=== PATIENT | female | born 1965 | race Caucasian/White ===

== ENCOUNTER 2020-09-28 09:01 | Emergency (ER) | payer OTHER ==
[~2020-09-28] VITALS: Ht 165.1 cm; Wt 81.7 kg
[~2020-09-28 09:01] MED LIST: AVELOX 400 MG400 MG PO; CYMBALTA30 MG PO; ESTRACE2 MG PO; LISINOPRIL-HCT1 EAC1 PO; ULTRAM ER100 MG PO
[2020-09-28] MEDS ORDERED: NEURONTIN 400M400 M2 PO (09:21)
[2020-09-28] MEDS ORDERED: GABAPENTIN800 M1 PO (09:21)
[2020-09-28] MEDS ORDERED: NORCO 7.5-3251 EACH PO (09:21)
[2020-09-28] MEDS ORDERED: ONZETRA XSAIL11 MG PO (09:22)
[2020-09-28] MEDS ORDERED: XYREM500 MG/1 M PO (09:22)
[2020-09-28] MEDS ORDERED: BENTYL 10 MG CA10 MG PO (09:22)
[2020-09-28] MEDS ORDERED: FEXOFENADINE-P1 EACH PO (09:23)
[2020-09-28] MEDS ORDERED: ACIDOPHILUS1 EAC3 PO (09:23)
[2020-09-28] MEDS ORDERED: SUPER THERAVIT1 EACH PO (09:23)
[2020-09-28] MEDS ORDERED: MAGNESIUM CITR100 MG PO (09:23)
[2020-09-28 10:04] LABS: URINE BILIRUBIN NEGATIVE (Negative); URINE BLOOD NEGATIVE (Negative); URINE CLARITY CLEAR; URINE COLOR YELLOW; URINE GLUCOSE-RANDOM NEGATIVE (Negative); URINE KETONES NEGATIVE (Negative); URINE LEUKOCYTES-REFLEX NEGATIVE (Negative); URINE NITRITE-REFLEX NEGATIVE (Negative); URINE PROTEIN NEGATIVE (Negative); URINE UROBILINOGEN 0.2 E.U./dl (0.2-1.0)
[2020-09-28] MEDS ORDERED: LIDODERM1 EACH TOP (10:13)
[2020-09-28 10:22] VITALS: BP 124/68
== END 2020-09-28 10:23 | disposition home or self-care (01) ==
LOC: M.ERS 09:01
PROVIDERS: Emergency Medicine Emergency Medical Services
DX: M54.5 Low back pain (principal); M79.7 Fibromyalgia; Z88.8 Allergy status to other drugs, medicaments and biological substances; Z88.1 Allergy status to other antibiotic agents; Z88.0 Allergy status to penicillin; Z79.899 Other long term (current) drug therapy; Z90.710 Acquired absence of both cervix and uterus; Z90.89 Acquired absence of other organs

== ENCOUNTER 2021-01-11 11:53 | Emergency (ER) | payer OTHER ==
[~2021-01-11] VITALS: Ht 157.5 cm; Wt 66.7 kg
[~2021-01-11 11:53] MED LIST changes: +ACIDOPHILUS1 EAC3 PO; +BENTYL 10 MG CA10 MG PO; +FEXOFENADINE-P1 EACH PO; +GABAPENTIN800 M1 PO; +LIDODERM1 EACH TOP; +MAGNESIUM CITR100 MG PO; +NEURONTIN 400M400 M2 PO; +NORCO 7.5-3251 EACH PO; +ONZETRA XSAIL11 MG PO; +SUPER THERAVIT1 EACH PO; +XYREM500 MG/1 M PO
[2021-01-11 13:25] VITALS: BP 138/70
== END 2021-01-11 13:27 | disposition home or self-care (01) ==
LOC: M.ERS 11:53
DX: S29.012A Strain of muscle and tendon of back wall of thorax, initial encounter (principal); M79.7 Fibromyalgia; Z88.0 Allergy status to penicillin; Z88.1 Allergy status to other antibiotic agents; Z88.2 Allergy status to sulfonamides; Z88.8 Allergy status to other drugs, medicaments and biological substances; Z90.710 Acquired absence of both cervix and uterus; W18.39XA Other fall on same level, initial encounter; Y93.89 Activity, other specified; Y92.89 Other specified places as the place of occurrence of the external cause; Y99.8 Other external cause status